=== PATIENT | male | born 1960 | race African-American/Black ===

== ENCOUNTER 2017-07-06 08:27 | Inpatient (IN) | payer OTHER ==
[~2017-07-06] VITALS: Ht 172.7 cm; Wt 72.7 kg
[~2017-07-06 08:27] MED LIST: ANTI-DIARRHEAL2 M2 PO; CLONIDINE HCL0.1 MG PO; DAPSONE100 MG PO; DOXAZOSIN MESYLA2 MG PO; Dapsone PO; Diflucan PO; ELIPHOS667 MG PO; ERGOCALCIF50000 UNIT PO; INTELENCE100 MG PO; INTELENCE200 MG PO; ISENTRESS400 MG PO; Imodium PO; LABETALOL HCL200 MG PO; LEVAQUIN750 MG PO; LOPRESSOR50 MG PO; LOSARTAN POTASS50 MG PO; NEPHRO-VITE,1 TABLET PO; NORVASC10 MG PO; NORVIR100 M1 PO; NORVIR100 MG; Norvasc PO; Norvir PO; OXYCODONE-APAP1 EACH PO; PREZISTA600 MG PO; PREZISTA800 MG PO; RENVELA800 MG PO; TOPROL XL50 MG PO; TRANDATE100 MG PO; VENTOLIN HFA18 GM IH; VITAMIN D400 UNIT PO
[2017-07-06 09:40] LABS: HEMATOCRIT 38.1 % (38.0-50.0); MCH 26.6 PG (29.0-34.0); MCHC 33.3 G/DL (30.0-36.0); MCV 79.9 FL (86-99); MEAN PLAT.VOLUME 12.6 uM^3 (9.0-12.4); PLATELET COUNT 108 K/uL (156-360); RBC DIS.WIDTH-CV 13.5 % (11.8-14.6); RBC DIS.WIDTH-SD 39.3 % (39-53); RED BLOOD COUNT 4.77 M/uL (4.00-5.50); WHITE BLOOD COUNT 5.2 K/uL (4.1-10.2)
[2017-07-06 09:51] LABS: CHLORIDE 92 mEq/L (99-109); SODIUM 137 mEq/L (136-147)
[2017-07-06 09:53] LABS: GLUCOSE 85 mg/dL (70-99)
[2017-07-06 09:54] LABS: ANION GAP 23 MEQ/L (2-14)
[2017-07-06 09:55] LABS: TOTAL BILIRUBIN 0.9 mg/dL (0.0-1.0)
[2017-07-06 09:57] LABS: ALKALINE PHOSPHATASE 113 IU/L (3-129); GFR ESTIMATE (CALCULATED) 4 mL/min/
[2017-07-06 10:00] LABS: POTASSIUM 8.4 mEq/L (3.7-5.4); UREA NITROGEN (BUN) 116 mg/dL (9-23)
[2017-07-06 10:22] LABS: TROP-I INTERPRETATION NEGATIVE; TROPONIN-I 0.06 ng/mL (0.0-0.30)
[2017-07-06 11:06] LABS: ADD MIUA? YES; BILIRUBIN NEGATIVE; BLOOD SMALL; COLOR YELLOW ((YELLOW)); GLUCOSE (STRIP) 50; KETONES NEGATIVE; LEUKOCYTES NEGATIVE; NITRITE NEGATIVE; PROTEIN (STRIP) 100; UROBILINOGEN 0.2 MG/DL (0.2-1.0)
[2017-07-06 11:10] LABS: BACTERIA NONE SEEN /HPF; EPITHELIAL CELLS RARE /HPF; MUCUS NONE SEEN /LPF; RED BLOOD CELLS 0-5 /HPF (0-5); UCUL ADDED? NO; WHITE BLOOD CELLS 0-5 /HPF (0-5)
[2017-07-06 11:10] LABS: CHLORIDE 92 mEq/L (99-109); SODIUM 137 mEq/L (136-147)
[2017-07-06 11:11] LABS: GLUCOSE 84 mg/dL (70-99)
[2017-07-06 11:13] LABS: ANION GAP 24 MEQ/L (2-14)
[2017-07-06 11:15] LABS: GFR ESTIMATE (CALCULATED) 3 mL/min/
[2017-07-06 11:18] LABS: POTASSIUM 8.7 mEq/L (3.7-5.4); UREA NITROGEN (BUN) 117 mg/dL (9-23)
[2017-07-06 11:32] LABS: LIPASE 117 U/L (1.0-51.0)
[2017-07-06 11:37] LABS: INFLUENZA A VIRAL ANTIGEN NEGATIVE; INFLUENZA B VIRAL ANTIGEN NEGATIVE
[2017-07-06 11:39] LABS: HBSG INDEX 0.27
[2017-07-06 11:48] LABS: POINT-OF-CARE METER ID UU13113747; POINT-OF-CARE USER ID STWBNM
[2017-07-06] MEDS ORDERED: RENVELA800 MG PO (12:12)
[2017-07-06] MEDS ORDERED: metolazone PO (12:14)
[2017-07-06 16:33] LABS: ANION GAP 19 MEQ/L (2-14); CHLORIDE 92 MEQ/L (99-109); SAMPLE HEMOLYSIS CHECK 0; SAMPLE ICTERIC CHECK 0; SAMPLE LIPEMIA CHECK 0; SODIUM 137 MEQ/L (136-147)
[2017-07-06 16:34] LABS: POTASSIUM 3.6 MEQ/L (3.7-5.4)
[2017-07-06 16:39] LABS: GFR ESTIMATE (CALCULATED) 14 mL/min/; GLUCOSE 65 mg/dL (70-99)
[2017-07-06 16:40] LABS: UREA NITROGEN (BUN) 36 mg/dL (9-23)
[2017-07-06 16:43] LABS: TROP-I INTERPRETATION NEGATIVE; TROPONIN-I 0.06 ng/mL (0.0-0.30)
[2017-07-06 17:26] VITALS: BP 172/84
[2017-07-06 21:00] VITALS: BP 141/61
[2017-07-06 21:36] LABS: TROP-I INTERPRETATION NEGATIVE; TROPONIN-I 0.05 ng/mL (0.0-0.30)
[2017-07-07 00:18] VITALS: BP 137/71
[2017-07-07 04:20] VITALS: BP 116/67
[2017-07-07 06:01] LABS: ANION GAP 15 MEQ/L (2-14); CHLORIDE 90 MEQ/L (99-109); SAMPLE HEMOLYSIS CHECK 0; SAMPLE ICTERIC CHECK 0; SAMPLE LIPEMIA CHECK 0; SODIUM 133 MEQ/L (136-147); UREA NITROGEN (BUN) 53 mg/dL (9-23)
[2017-07-07 06:10] LABS: GFR ESTIMATE (CALCULATED) 6 mL/min/; GLUCOSE 101 mg/dL (70-99); POTASSIUM 5.1 MEQ/L (3.7-5.4)
[2017-07-07 07:38] VITALS: BP 123/67
[2017-07-07 11:42] VITALS: BP 112/58
[2017-07-07 15:39] VITALS: BP 113/56
[2017-07-07 19:25] VITALS: BP 120/60
[2017-07-08 00:57] VITALS: BP 116/66
[2017-07-08 04:05] VITALS: BP 124/72
[2017-07-08 05:03] LABS: EOSINOPHIL (%) 15.9 % (0-5); EOSINOPHIL COUNT 0.7 K/uL (0-0.3); HEMATOCRIT 34.8 % (38.0-50.0); IMMATURE GRANULOCYTE (%) 0.2 % (0.0-0.7); INSTRUMENT ABS NEUTROPHIL CT 1.5 K/uL; LYMPHOCYTE COUNT 1.4 K/uL (1.0-2.8); MCH 26.6 PG (29.0-34.0); MCHC 33.3 G/DL (30.0-36.0); MCV 79.8 FL (86-99); MONOCYTE (%) 14.7 % (3-12); MONOCYTE COUNT 0.6 K/uL (0-0.8); NEUTROPHIL (%) 35.1 % (45-76); NEUTROPHIL COUNT 1.5 K/uL (1.8-6.4); PLATELET COUNT 100 K/uL (156-360); RBC DIS.WIDTH-CV 13.3 % (11.8-14.6); RBC DIS.WIDTH-SD 38.2 % (39-53); RED BLOOD COUNT 4.36 M/uL (4.00-5.50); WHITE BLOOD COUNT 4.1 K/uL (4.1-10.2)
[2017-07-08 05:20] LABS: CHLORIDE 91 mEq/L (99-109); POTASSIUM 4.8 mEq/L (3.7-5.4); SODIUM 133 mEq/L (136-147)
[2017-07-08 05:22] LABS: GLUCOSE 102 mg/dL (70-99)
[2017-07-08 05:23] LABS: ANION GAP 16 MEQ/L (2-14)
[2017-07-08 05:26] LABS: GFR ESTIMATE (CALCULATED) 4 mL/min/
[2017-07-08 05:27] LABS: UREA NITROGEN (BUN) 77 mg/dL (9-23)
[2017-07-08 06:50] VITALS: BP 135/62
[2017-07-08] MEDS ORDERED: NIFEDIPINE ER30 MG PO (11:12)
[2017-07-08 13:01] VITALS: BP 147/69
== END 2017-07-08 14:40 | disposition home or self-care (01) | DRG 981 ==
LOC: EME 08:27 → EDOF 11:53 → 4EAST 11:53 → EDOF 11:53 → ENRESERV 14:28 → 2SOUTH 16:06 → 4EAST 17:08
PROVIDERS: Internal Medicine; Internal Medicine Nephrology; Nurse Practitioner Family
DX: E87.5 Hyperkalemia (principal); I12.0 Hypertensive chronic kidney disease with stage 5 chronic kidney disease or end stage renal disease; N18.6 End stage renal disease; Z99.2 Dependence on renal dialysis; B20 Human immunodeficiency virus [HIV] disease; T82.590A Other mechanical complication of surgically created arteriovenous fistula, initial encounter; Y71.2 Prosthetic and other implants, materials and accessory cardiovascular devices associated with adverse incidents; D69.6 Thrombocytopenia, unspecified; B19.20 Unspecified viral hepatitis C without hepatic coma; J00 Acute nasopharyngitis [common cold]; F14.10 Cocaine abuse, uncomplicated; Z71.51 Drug abuse counseling and surveillance of drug abuser; Z79.899 Other long term (current) drug therapy
CPT/HCPCS: 71020; 80048; 80048 91; 80053; 81003; 82948; 83605; 83690; 84484; 85025; 85027; 87040; 87340; 87502; 93005; 93990; 99281; 99285; C1769; C1894; G0378; J0610; J1644; J2250; J2405; J3010; J7050

== ENCOUNTER 2017-09-20 19:56 | Observation (INO) | payer OTHER ==
[~2017-09-20] VITALS: Ht 172.7 cm; Wt 90.8 kg
[~2017-09-20 19:56] MED LIST changes: +NIFEDIPINE ER30 MG PO; +metolazone PO
[2017-09-20 20:31] LABS: HEMATOCRIT 34.2 % (38.0-50.0); HEMOGLOBIN 11.3 G/DL (12.5-16.6); MCH 28.1 PG (29.0-34.0); MCV 85.1 FL (86-99); PLATELET COUNT 118 K/uL (156-360); RBC DIS.WIDTH-CV 16.4 % (11.8-14.6); RBC DIS.WIDTH-SD 51.2 % (39-53); RED BLOOD COUNT 4.02 M/uL (4.00-5.50); WHITE BLOOD COUNT 5.1 K/uL (4.1-10.2)
[2017-09-20 20:42] LABS: CHLORIDE 93 mEq/L (99-109); POTASSIUM 5.2 mEq/L (3.7-5.4); SODIUM 136 mEq/L (136-147)
[2017-09-20 20:44] LABS: GLUCOSE 100 mg/dL (70-99)
[2017-09-20 20:48] LABS: CREATININE 13.5 mg/dL (0.6-1.3); GFR ESTIMATE (CALCULATED) 5 mL/min/ (58.99-99999)
[2017-09-20 20:49] LABS: UREA NITROGEN (BUN) 60 mg/dL (9-23)
[2017-09-20 20:55] LABS: TROP-I INTERPRETATION NEGATIVE; TROPONIN-I 0.04 ng/mL (0.0-0.30)
[2017-09-21] MEDS ORDERED: RENA-VITE RX T1 EACH PO (04:16)
[2017-09-21] MEDS ORDERED: LONITEN10 MG PO (04:16)
[2017-09-21 04:51] LABS: BASOPHIL (%) 0.8 % (0-1); EOSINOPHIL (%) 10.6 % (0-5); EOSINOPHIL COUNT 0.5 K/uL (0-0.3); IMMATURE GRANULOCYTE (%) 0.6 % (0.0-0.7); LYMPHOCYTE (%) 22.6 % (15-42); LYMPHOCYTE COUNT 1.1 K/uL (1.0-2.8); MONOCYTE (%) 12.2 % (3-12); MONOCYTE COUNT 0.6 K/uL (0-0.8); NEUTROPHIL (%) 53.2 % (45-76); NEUTROPHIL COUNT 2.6 K/uL (1.8-6.4)
[2017-09-21 06:30] LABS: APPEARANCE CLEAR ((CLEAR)); BILIRUBIN NEGATIVE; BLOOD NEGATIVE; COLOR YELLOW ((YELLOW)); GLUCOSE (STRIP) 50; KETONES NEGATIVE; LEUKOCYTES NEGATIVE; NITRITE NEGATIVE; PROTEIN (STRIP) 100; SPECIFIC GRAVITY 1.011 (1.000-1.030); UROBILINOGEN 0.2 MG/DL (0.2-1.0)
[2017-09-21 06:34] LABS: AMPHETAMINE NEGATIVE (500 ng/mL); BARBITURATES NEGATIVE (200 ng/mL); BUPRENORPHINE NEGATIVE (10 ng/mL); COCAINE NEGATIVE (150 ng/mL); METHADONE NEGATIVE (200 ng/mL); METHAMPHETAMINE NEGATIVE (500 ng/mL); OPIATES (MORPHINE) NEGATIVE (100 ng/mL); OXYCODONE NEGATIVE (100 ng/mL); PHENCYCLIDINE NEGATIVE (25 ng/mL); PROPOXYPHENE NEGATIVE (300 ng/mL); THC CANNABINOIDS NEGATIVE (50 ng/mL); TRICYCLIC ANTIDEPRESSANTS NEGATIVE (300 ng/mL)
[2017-09-21 06:45] LABS: BACTERIA RARE /HPF; EPITHELIAL CELLS RARE /HPF; MUCUS NONE SEEN /LPF; RED BLOOD CELLS 0-5 /HPF (0-5); UCUL ADDED? NO; WHITE BLOOD CELLS 0-5 /HPF (0-5)
[2017-09-21 06:50] LABS: BENZODIAZEPINES PRESUMPTIVE POSITIVE (150 ng/mL)
[2017-09-21 07:34] LABS: BENZODIAZEPINES, URINE SCREEN Negative (200 ng/mL)
[2017-09-21 14:37] VITALS: BP 170/81
[2017-09-21 19:36] VITALS: BP 171/84
[2017-09-21 23:43] VITALS: BP 178/87
[2017-09-22 04:23] VITALS: BP 172/83
[2017-09-22 07:09] LABS: BASOPHIL (%) 0.7 % (0-1); EOSINOPHIL (%) 9.4 % (0-5); EOSINOPHIL COUNT 0.4 K/uL (0-0.3); HEMATOCRIT 32.9 % (38.0-50.0); HEMOGLOBIN 10.6 G/DL (12.5-16.6); IMMATURE GRANULOCYTE (%) 0.2 % (0.0-0.7); LYMPHOCYTE (%) 18.5 % (15-42); LYMPHOCYTE COUNT 0.8 K/uL (1.0-2.8); MCH 27.6 PG (29.0-34.0); MCHC 32.2 G/DL (30.0-36.0); MCV 85.7 FL (86-99); MONOCYTE (%) 14.6 % (3-12); MONOCYTE COUNT 0.6 K/uL (0-0.8); NEUTROPHIL (%) 56.6 % (45-76); NEUTROPHIL COUNT 2.5 K/uL (1.8-6.4); PLATELET COUNT 99 K/uL (156-360); RBC DIS.WIDTH-CV 15.8 % (11.8-14.6); RBC DIS.WIDTH-SD 49.4 % (39-53); RED BLOOD COUNT 3.84 M/uL (4.00-5.50); WHITE BLOOD COUNT 4.4 K/uL (4.1-10.2)
[2017-09-22 07:32] LABS: CHLORIDE 95 MEQ/L (99-109); GLUCOSE 108 mg/dL (70-99); POTASSIUM 4.6 MEQ/L (3.7-5.4); SODIUM 137 MEQ/L (136-147); UREA NITROGEN (BUN) 48 mg/dL (9-23)
[2017-09-22 07:38] LABS: GFR ESTIMATE (CALCULATED) 6 mL/min/ (58.99-99999)
[2017-09-22 08:08] VITALS: BP 171/84
[2017-09-22 11:25] VITALS: BP 171/85
[2017-09-23 13:37] LABS: CD4/CD8 Ratio 0.88 (0.86-5.00)
== END 2017-09-22 12:34 | disposition home or self-care (01) ==
LOC: EME 19:56 → 3EAST 09-21 03:36 → EDOF 09-21 03:36 → ENRESERV 09-21 03:50 → 3EAST 09-21 14:22
PROVIDERS: Hospitalist; Physician Assistant Medical
PROC: 5A1D70Z Performance of Urinary Filtration, Intermittent, Less than 6 Hours Per Day (ICD-10-PCS; principal; 2017-09-21)
DX: E87.70 Fluid overload, unspecified (principal); I12.0 Hypertensive chronic kidney disease with stage 5 chronic kidney disease or end stage renal disease; N18.6 End stage renal disease; Z99.2 Dependence on renal dialysis; R09.02 Hypoxemia; B20 Human immunodeficiency virus [HIV] disease; Z91.19 Patient's noncompliance with other medical treatment and regimen; F19.11 Other psychoactive substance abuse, in remission; Z86.19 Personal history of other infectious and parasitic diseases; Z87.19 Personal history of other diseases of the digestive system; Z82.49 Family history of ischemic heart disease and other diseases of the circulatory system; Z83.3 Family history of diabetes mellitus; Z88.0 Allergy status to penicillin; Z91.040 Latex allergy status
CPT/HCPCS: 71045; 71046; 71250; 80048; 81003; 83605; 83880; 84484; 84999; 85025; 85027; 86355 90; 86359 90; 86360 90; 87040; 87493; 87502; 87536; 93005; 94640; 94799; 99202; 99281; 99285; G0257; G0378; J1644; J1940; J1956

== ENCOUNTER 2018-02-03 07:39 | Observation (INO) | payer OTHER ==
[~2018-02-03] VITALS: Ht 165.1 cm; Wt 80.0 kg
[~2018-02-03 07:39] MED LIST changes: -DOXAZOSIN MESYLA2 MG PO; +DOXAZOSIN MESYLA8 MG PO; +LONITEN10 MG PO; +RENA-VITE RX T1 EACH PO
[2018-02-03 08:33] LABS: HEMATOCRIT 28.2 % (38.0-50.0); HEMOGLOBIN 9.5 G/DL (12.5-16.6); MCH 27.9 PG (29.0-34.0); MCHC 33.7 G/DL (30.0-36.0); MCV 82.9 FL (86-99); PLATELET COUNT 113 K/uL (156-360); RBC DIS.WIDTH-CV 16.6 % (11.8-14.6); RBC DIS.WIDTH-SD 49.3 % (39-53); WHITE BLOOD COUNT 4.6 K/uL (4.1-10.2)
[2018-02-03 08:44] LABS: CHLORIDE 94 mEq/L (99-109); SODIUM 137 mEq/L (136-147)
[2018-02-03 08:46] LABS: GLUCOSE 95 mg/dL (70-99)
[2018-02-03 08:50] LABS: CREATININE 13.4 mg/dL (0.6-1.3); GFR ESTIMATE (CALCULATED) 5 mL/min/ (58.99-99999)
[2018-02-03 08:51] LABS: UREA NITROGEN (BUN) 50 mg/dL (9-23)
[2018-02-03 08:56] LABS: TROP-I INTERPRETATION NEGATIVE; TROPONIN-I 0.09 ng/mL (0.0-0.30)
[2018-02-03] MEDS ORDERED: RESTORIL15 MG PO (10:20)
[2018-02-03] MEDS ORDERED: TYLENOL REGULA325 MG PO (10:21)
[2018-02-03 13:30] VITALS: BP 230/100
[2018-02-03 14:00] VITALS: BP 173/90
[2018-02-03 14:56] LABS: HDL CHOLESTEROL 51 MG/DL (Desirable>=40); LDL CHOLESTEROL 126 mg/dL (Desirable<100); NON-HDL CHOLESTEROL 148 mg/dL (Desirable<160); TOTAL CHOLESTEROL 199 mg/dL (Desirable<200); TRIGLYCERIDES 112 MG/DL (Normal: <150)
[2018-02-03 15:08] LABS: TROP-I INTERPRETATION NEGATIVE; TROPONIN-I 0.08 ng/mL (0.0-0.30)
[2018-02-03 18:14] LABS: TROP-I INTERPRETATION NEGATIVE; TROPONIN-I 0.08 ng/mL (0.0-0.30)
[2018-02-03 20:00] VITALS: BP 128/60
[2018-02-04 00:16] VITALS: BP 125/58
[2018-02-04 00:56] LABS: TROP-I INTERPRETATION NEGATIVE; TROPONIN-I 0.08 ng/mL (0.0-0.30)
[2018-02-04 03:58] VITALS: BP 118/63
[2018-02-04 08:56] VITALS: BP 138/65
[2018-02-04 11:21] VITALS: BP 109/55
[2018-02-04] MEDS ORDERED: CLONIDINE HCL0.1 MG PO (11:32)
[2018-02-04] MEDS ORDERED: LOPRESSOR25 MG PO (11:35)
[2018-02-04] MEDS ORDERED: ASPIR-LOW81 MG PO (11:35)
== END 2018-02-04 14:00 | disposition home or self-care (01) ==
LOC: EME 07:39 → EDOF 10:29 → 4SOUTH 10:29 → EDOF 10:29 → ENRESERV 10:30 → 4SOUTH 12:57
PROVIDERS: Hospitalist; Physician Assistant
PROC: 5A1D70Z Performance of Urinary Filtration, Intermittent, Less than 6 Hours Per Day (ICD-10-PCS; principal; 2018-02-03)
DX: R07.9 Chest pain, unspecified (principal); I12.0 Hypertensive chronic kidney disease with stage 5 chronic kidney disease or end stage renal disease; N18.6 End stage renal disease; Z99.2 Dependence on renal dialysis; R94.31 Abnormal electrocardiogram [ECG] [EKG]; Z86.19 Personal history of other infectious and parasitic diseases; F19.11 Other psychoactive substance abuse, in remission; B20 Human immunodeficiency virus [HIV] disease; Z87.19 Personal history of other diseases of the digestive system; Z82.49 Family history of ischemic heart disease and other diseases of the circulatory system; Z83.3 Family history of diabetes mellitus; Z88.0 Allergy status to penicillin; Z91.040 Latex allergy status
CPT/HCPCS: 71046; 71275; 80047; 80048; 80061; 84484; 85027; 93005; 99281; 99285; G0378; J0360; J2360; J3010